=== PATIENT | female | born 1970 | race Caucasian/White ===

== ENCOUNTER → 2016-06-17 | Outpatient (CLI) | payer BC ==
[2016-06-17 08:23] LABS: Basophils # (A) 0.1 k/uL (0-0.2); Basophils % (A) 1 %; CH 32.4; CHCM 34.4; Eosinophils # (A) 0.1 k/uL (0-0.7); Eosinophils % (A) 2 %; HCT 40.9 % (34.0-46.0); HDW 2.53; HGB 13.5 gm/dL (11.4-16.0); Luc # (Auto) 0.12; Luc % (Auto) 2; Lymphocytes # (A) 1.8 k/uL (1.0-4.8); Lymphocytes % (A) 29 %; MCH 31.3 pg (25.0-35.0); MCHC 33.1 g/dL (31.0-37.0); MCV 94.5 fL (80.0-100.0); Mean Platelet Volume 6.7; Monocytes # (A) 0.2 k/uL (0-1.0); Monocytes % (A) 4 %; Neutrophils # (A) 3.8 k/uL (1.3-7.7); Neutrophils % (A) 63 %; RBC 4.33 m/uL (3.80-5.40); RDW 12.1 % (11.5-15.5); WBC (Perox) 6.14
[2016-06-17 09:09] LABS: ALT 36 U/L (9-52); AST 21 U/L (14-36); Alkaline Phosphatase 82 U/L (38-126); Anion Gap 9 mmol/L; Blood Urea Nitrogen 15 mg/dL (7-17); Calcium 9.5 mg/dL (8.4-10.2); Carbon Dioxide 29 mmol/L (22-30); Chloride 102 mmol/L (98-107); Cholesterol 152 mg/dL (<200); Glucose 93 mg/dL (74-99); HDL Cholesterol 58 mg/dL (40-60); Non-African American GFR(MDRD) >60 (>60 ml/min/1.73 sqM); Potassium 4.6 mmol/L (3.5-5.1); Sodium 140 mmol/L (137-145); Total Bilirubin 0.8 mg/dL (0.2-1.3); Total Protein 7.3 g/dL (6.3-8.2); Triglycerides 66 mg/dL (<150)
== END | disposition home or self-care (01) ==
LOC: LABWHC1 07:56
PROVIDERS: ATTEND Family Medicine
DX: Z13.29 Encounter for screening for other suspected endocrine disorder (principal); Z13.6 Encounter for screening for cardiovascular disorders
CPT/HCPCS: 36415; 80053; 80061; 84443; 85025

== ENCOUNTER → 2017-10-11 | Outpatient (CLI) | payer BC ==
--- NOTE | 2017-10-11 10:19 | US ---
EXAMINATION TYPE: US kidneys/renal and bladder DATE OF EXAM: 10/11/2017 COMPARISON: US CLINICAL HISTORY: N20.0Calculus of kidney, R31.9 Hematuria. EXAM MEASUREMENTS: Right Kidney: 11.2 x 4.4 x 3.4 cm Left Kidney: 10.3 x 6.6 x 5.7 cm Post Void Residual Volume: 6.9 mL Right Kidney: complex cyst mid cortex = 0.6 x 0.5 x 0.4cm; mid pole multiple small hyperechoic foci; lower pole shadowing cluster of stones = 0.4 x 0.5 x 0.4cm Left Kidney: mild hydronephrosis; mid pole parallel hyperechoic lines suggests calcification in vesse l perdomo Bladder: wnl Bilateral Jets seen: Yes Normal Post Void Residual: Yes Bilateral ureteral jets are seen. Bladder is well distended without intraluminal mass or wall thickening. Bilateral jets are seen. Afte r voiding small amount of residual urine is present. There is increased cortical echogenicity in right kidney. Technologist riojas nonspecific hyperechoic nonshadowing areas and tiny simple cysts. Left kidney there is anechoic area centrally favoring promi nent renal pelvis as there is no calyceal dilatation. Increased cortical echogenicity is present. IMPRESSION: No significant finding is seen to account for patient's symptoms. Possible nonobstructing right-sided renal calculi. Advise CT to better assess.
== END ==
LOC: RADUSMAIN 08:32
PROVIDERS: ATTEND Urology
DX: R31.9 Hematuria, unspecified (principal)
CPT/HCPCS: 76770

== ENCOUNTER → 2017-12-13 | Outpatient (CLI) | payer BC ==
--- NOTE | 2017-07-19 10:15 | US ---
EXAMINATION TYPE: US abdomen limited DATE OF EXAM: 07/19/2017 COMPARISON: None CLINICAL HISTORY: 46-year-old female R10.10 Upper abd pain unspecified. Pt states RUQ pain on/off x m any years Technique: Multiple sonographic images of the right upper quadrant are obtained. FINDINGS: Liver Length: 14.5 cm Gallbladder Wall: 0.2 cm CBD: 0.3 cm Right Kidney: 10.7 x 3.1 x 4.8 cm Pancreas: wnl Liver: Normal homogeneous echotexture without focal lesion. Gallbladder: wnl Evidence for sonographic Laureano's sign: No CBD: wnl Right Kidney: No hydronephrosis. There is a 5 mm echogenic focus at the mid pole that could represent a nonobstructive calculus. IMPRESSION: Possible 5 mm nonobstructive right mid pole renal calculus. Otherwise, unremarkable sonographic exami nation of the right upper quadrant.
--- NOTE | 2017-12-14 11:08 | MM ---
Reason for exam: screening (asymptomatic). Last mammogram was performed 1 year and 7 months ago. History: Patient has history of other cancer at age 44. Family history of breast cancer in paternal grandmother at age 58. Physical Findings: A clinical breast exam by your physician is recommended on an annual basis and results should be correlated with mammographic findings. MG 3D Screening Mammo W/Cad Bilateral CC and MLO view(s) were taken. Prior study comparison: May 11, 2016, bilateral MG 3d screening mammo w/cad. April 08, 2015, bilateral MG screening mammo w CAD. The breast tissue is heterogeneously dense. This may lower the sensitivity of mammography. Asymmetric breast tissue in the left upper breast. There is no discrete abnormality. ASSESSMENT: Negative, BI-RAD 1 RECOMMENDATION: Routine screening mammogram of both breasts in 1 year.
== END | disposition home or self-care (01) ==
LOC: RADUSWWP 07-19 09:02
PROVIDERS: ATTEND Obstetrics & Gynecology
DX: R10.10 Upper abdominal pain, unspecified (principal)
CPT/HCPCS: 76705; 77063; 77067

== ENCOUNTER → 2018-12-19 | Outpatient (CLI) | payer BC ==
[2018-12-19 10:20] LABS: Basophils % (A) 1 %; Eosinophils # (A) 0.1 k/uL (0-0.7); Eosinophils % (A) 2 %; HCT 41.2 % (34.0-46.0); HGB 13.3 gm/dL (11.4-16.0); Lymphocytes # (A) 2.1 k/uL (1.0-4.8); Lymphocytes % (A) 35 %; MCH 31.9 pg (25.0-35.0); MCHC 32.4 g/dL (31.0-37.0); MCV 98.5 fL (80.0-100.0); Mean Platelet Volume 7.2; Monocytes # (A) 0.3 k/uL (0-1.0); Monocytes % (A) 4 %; Neutrophils # (A) 3.3 k/uL (1.3-7.7); Neutrophils % (A) 56 %; Platelet Count 304 k/uL (150-450); RBC 4.18 m/uL (3.80-5.40); RDW 13.1 % (11.5-15.5); WBC 5.9 k/uL (3.8-10.6)
[2018-12-19 16:04] LABS: ALT 18 U/L (8-44); AST 20 U/L (13-35); African American GFR (CKD) 117.1 (60.0-200.0); Alkaline Phosphatase 102 U/L (41-126); BUN/Creat Ratio 21.43 Ratio (12.00-20.00); Calcium 9.2 mg/dL (8.7-10.3); Carbon Dioxide 28.7 mmol/L (21.6-31.8); Chloride 105 mmol/L (96-109); Cholesterol 152 mg/dL (0-200); Glucose 94 mg/dL (70-110); Potassium 4.6 mmol/L (3.5-5.5); Sodium 140 mmol/L (135-145); Total Bilirubin 0.4 mg/dL (0.2-1.2); Total Protein 6.2 g/dL (6.2-8.2); Triglycerides <50.0 mg/dL (0.0-149.0); VLDL Calculation 9.98 mg/dL (5.00-40.00)
== END | disposition home or self-care (01) ==
LOC: LABWHC1 08:44
PROVIDERS: ATTEND Family Medicine
DX: Z13.220 Encounter for screening for lipoid disorders (principal); Z13.29 Encounter for screening for other suspected endocrine disorder
CPT/HCPCS: 36415; 80053; 80061; 84443; 85025

== ENCOUNTER → 2019-01-23 | Outpatient (CLI) | payer BC ==
--- NOTE | 2019-01-28 09:19 | MM ---
Reason for exam: screening (asymptomatic). Last mammogram was performed 1 year and 1 month ago. History: Patient has history of other cancer at age 44. Family history of breast cancer in paternal grandmother at age 58. Physical Findings: A clinical breast exam by your physician is recommended on an annual basis and results should be correlated with mammographic findings. MG 3D Screening Mammo W/Cad Bilateral CC and MLO view(s) were taken. Prior study comparison: December 13, 2017, bilateral MG 3d screening mammo w/cad. May 11, 2016, bilateral MG 3d screening mammo w/cad. The breast tissue is extremely dense which could obscure a lesion on mammography. Focal asymmetry right upper quadrant, increased in size from 4 to 6mm. This finding is changed when compared with previous exams. ASSESSMENT: Incomplete: need additional imaging evaluation, BI-RAD 0 RECOMMENDATION: Special view mammogram of the right breast. If lesion persists on supplemental views, image directed ultrasound is recommended. [facility] will attempt to contact patient to return for supplemental views and ultrasound if indicated.
== END | disposition home or self-care (01) ==
LOC: RADMAMWWP 08:52
PROVIDERS: ATTEND Obstetrics & Gynecology
DX: Z12.31 Encounter for screening mammogram for malignant neoplasm of breast (principal)
CPT/HCPCS: 77063; 77067

== ENCOUNTER → 2019-02-05 | Outpatient (CLI) | payer BC | END | disposition home or self-care (01) | LOC: LABWHC1 07:08 | PROVIDERS: ATTEND Obstetrics & Gynecology | DX: N93.8 Other specified abnormal uterine and vaginal bleeding (principal) | CPT/HCPCS: 36415; 82670; 83001; 83002 ==

== ENCOUNTER → 2019-02-13 | Outpatient (CLI) | payer BC ==
--- NOTE | 2019-02-13 09:35 | MM ---
Reason for exam: additional evaluation requested from abnormal screening. Last mammogram was performed 1 month ago. History: Patient has history of other cancer at age 44. Family history of breast cancer in paternal grandmother at age 58. Physical Findings: Nurse did not find any significant physical abnormalities on exam. MG 3D Work Up W/Cad RT ML and spot compression MLO view(s) were taken of the right breast. Prior study comparison: January 23, 2019, bilateral MG 3d screening mammo w/cad. December 13, 2017, bilateral MG 3d screening mammo w/cad. There is no discrete abnormality including area of concern. These results were verbally communicated with the patient and result sheet given to the patient on 02/13/19. ASSESSMENT: Negative, BI-RAD 1 RECOMMENDATION: Return to routine screening mammogram schedule for both breasts.
== END | disposition home or self-care (01) ==
LOC: RADMAMWWP 08:56
PROVIDERS: ATTEND Obstetrics & Gynecology
DX: R92.8 Other abnormal and inconclusive findings on diagnostic imaging of breast (principal)
CPT/HCPCS: 77061; 77065

== ENCOUNTER → 2020-06-23 | Outpatient (CLI) | payer BC ==
--- NOTE | 2020-06-23 15:57 | BD ---
EXAMINATION TYPE: Axial Bone Density DATE OF EXAM: 06/23/2020 COMPARISON: NONE CLINICAL HISTORY: Height: 5 FT 4 IN Weight: 139 FRAX RISK QUESTIONS: Alcohol (3 or more units per day): NO Family History (Parent hip fracture): NO Glucocorticoids (More than 3mos): NO (Ex: prednisone, prednisolone, methylprednisolone, dexamethasone, and hydrocortisone). History of Fracture in Adulthood: NO Secondary Osteoporosis: 1. Type 1 Diabetes: NO 2. Hyperthyroidism: NO 3. Menopause before 45: NO 4. Malnutrition: NO 5. Chronic liver disease: NO Rheumatoid Arthritis: NO Current Tobacco Use: NO RISK FACTORS HISTORY OF: Family History of Osteoporosis: YES Active: YES Diet low in dairy products/other sources of calcium: NO Postmenopausal woman: PILY If Premenopausal, do you have irregular periods: YES Take estrogen and/or progesterone medications: NONE Lost more than 2 inches in height since high school: NO MEDICATIONS: Additional Medications: NONE Additional History: EXAM MEASUREMENTS: Bone mineral densitometry was performed using the [employer]. Bone mineral density as measured about the Lumbar spine is: ----- L1-L4(G/cm2): 1.296 T Score Values are as follows: ----- L2: 0.6 ----- L3: 1.3 ----- L4: 1.3 ----- L1-L4: 1.0 BASELINE Bone mineral density about the R hip (g/cm2): 1.045 Bone mineral density about the L hip (g/cm2): 1.054 T Score values are as follows: -----R Neck: 0.0 -----L Neck: 0.1 -----R Total: -0.2 -----L Total: -0.1 BASELINE IMPRESSION: Normal (Values between +1 and -1 indicate normal bone mass). Consider repeating this study in 5 year s or sooner if there is some new clinical indication. NOTE: T-SCORE=SD OF THE YOUNG ADULT MEAN.
== END | disposition home or self-care (01) ==
LOC: RADBDWWP 07:11
PROVIDERS: ATTEND Obstetrics & Gynecology
DX: N95.1 Menopausal and female climacteric states (principal)
CPT/HCPCS: 77080

== ENCOUNTER → 2020-07-09 | Outpatient (CLI) | payer BC ==
--- NOTE | 2020-07-13 12:26 | MM ---
Reason for exam: screening (asymptomatic). Last mammogram was performed 1 year and 5 months ago. History: Patient has history of other cancer at age 44. Family history of breast cancer in paternal grandmother at age 58. Took hormonal contraceptives for 12 years. Physical Findings: A clinical breast exam by your physician is recommended on an annual basis and results should be correlated with mammographic findings. MG 3D Screening Mammo W/Cad Bilateral CC and MLO view(s) were taken. Prior study comparison: January 23, 2019, bilateral MG 3d screening mammo w/cad. December 13, 2017, bilateral MG 3d screening mammo w/cad. May 11, 2016, bilateral MG 3d screening mammo w/cad. The breast tissue is heterogeneously dense. This may lower the sensitivity of mammography. No significant changes when compared with prior studies. ASSESSMENT: Benign, BI-RAD 2 RECOMMENDATION: Routine screening mammogram of both breasts in 1 year.
== END | disposition home or self-care (01) ==
LOC: RADMAMWWP 07:18
PROVIDERS: ATTEND Obstetrics & Gynecology Obstetrics
DX: Z12.31 Encounter for screening mammogram for malignant neoplasm of breast (principal)
CPT/HCPCS: 77063; 77067

== ENCOUNTER → 2021-02-28 | Outpatient (CLI) | payer BC ==
[2021-02-28 14:21] LABS: Estradiol 44.2 pg/mL; Follicle Stimulating Hormone 9.9 mIU/mL
== END | disposition home or self-care (01) ==
LOC: LABWHC1 07:17
PROVIDERS: ATTEND Obstetrics & Gynecology Obstetrics
DX: R53.83 Other fatigue (principal); L65.9 Nonscarring hair loss, unspecified; R37 Sexual dysfunction, unspecified
CPT/HCPCS: 36415; 82670; 83001; 84403

== ENCOUNTER → 2021-07-21 | Outpatient (CLI) | payer BC ==
[2021-07-21 14:53] LABS: Basophils # (A) 0.05 X 10*3/uL (0.00-0.10); Basophils % (A) 0.6 %; Eosinophils # (A) 0.14 X 10*3/uL (0.04-0.35); Eosinophils % (A) 1.8 %; HCT 43.1 % (37.2-46.3); HGB 13.9 g/dL (12.0-15.0); Immature Grans, Automated 0.4 %; Lymphocytes # (A) 1.88 X 10*3/uL (0.90-5.00); Lymphocytes % (A) 23.6 %; MCH 31.8 pg (27.0-32.0); MCHC 32.3 g/dL (32.0-37.0); MCV 98.6 fL (80.0-97.0); Mean Platelet Volume 9.7 fL (9.5-12.2); Monocytes # (A) 0.46 X 10*3/uL (0.20-1.00); Monocytes % (A) 5.8 %; NRBC Per 100 WBC 0 /100 WBCS (0.0-0.0); Neutrophils % (A) 67.8 %; Platelet Count 292 X 10*3/uL (140-440); RBC 4.37 X 10*6/uL (4.10-5.20); RDW 12.5 % (11.5-14.5); WBC 7.96 X 10*3/uL (4.50-10.00)
[2021-07-21 15:28] LABS: ALT 17 U/L (8-44); AST 23 U/L (13-35); African American GFR (CKD) 116.3 (60.0-200.0); Albumin 4.5 g/dL (3.8-4.9); Albumin/Globulin Ratio 1.73 (1.60-3.17); Alkaline Phosphatase 74 U/L (41-126); BUN/Creat Ratio 15.79 Ratio (12.00-20.00); Blood Urea Nitrogen 10.8 mg/dL (9.0-27.0); Calcium 9.3 mg/dL (8.7-10.3); Carbon Dioxide 24.7 mmol/L (20.0-27.5); Chloride 101 mmol/L (96-109); Globulin 2.6 g/dL (1.6-3.3); Glucose 95 mg/dL (70-110); LDL Cholesterol,Calculated 90.8 mg/dL (0.0-131.0); Non-African American GFR(CKD) 100.4 (60.0-200.0); Potassium 4.2 mmol/L (3.5-5.5); Sodium 138 mmol/L (135-145); Total Protein 7.2 g/dL (6.2-8.2); VLDL Calculation 14.04 mg/dL (5.00-40.00)
--- NOTE | 2021-07-25 09:38 | MM ---
Reason for exam: screening (asymptomatic). Last mammogram was performed 1 year ago. History: Patient is postmenopausal and has history of other cancer at age 44. Family history of breast cancer in paternal grandmother at age 58. Took hormonal contraceptives for 12 years. Taking other hormone for 8 months. Physical Findings: A clinical breast exam by your physician is recommended on an annual basis and results should be correlated with mammographic findings. MG 3D Screening Mammo W/Cad Bilateral CC and MLO view(s) were taken. Prior study comparison: July 09, 2020, bilateral MG 3d screening mammo w/cad. February 13, 2019, right breast MG 3d work up w/cad RT. The breast tissue is extremely dense which could obscure a lesion on mammography. No significant changes when compared with prior studies. ASSESSMENT: Benign, BI-RAD 2 RECOMMENDATION: Routine screening mammogram of both breasts in 1 year.
== END | disposition home or self-care (01) ==
LOC: RADMAMWWP 08:35
PROVIDERS: ATTEND Obstetrics & Gynecology Obstetrics
DX: Z12.31 Encounter for screening mammogram for malignant neoplasm of breast (principal); Z13.220 Encounter for screening for lipoid disorders; Z01.89 Encounter for other specified special examinations; R79.9 Abnormal finding of blood chemistry, unspecified; R53.83 Other fatigue; N95.9 Unspecified menopausal and perimenopausal disorder; R37 Sexual dysfunction, unspecified; G47.00 Insomnia, unspecified
CPT/HCPCS: 77063; 77067; 80053; 80061; 84403; 84443; 85025

== ENCOUNTER → 2022-08-25 | Outpatient (CLI) | payer BC ==
--- NOTE | 2022-08-28 19:15 | MM ---
Reason for Exam: Screening (asymptomatic). Last mammogram was performed 1 year(s) and 1 month(s) ago. Patient History: Menarche at age 11. First Full-Term at age 25. Postmenopausal. Patient has history of breast feeding. Other cancer, age 44. Patient used Hormonal Contraceptives for 12 years. Paternal grandmother had breast cancer, age 58. Risk Values: Nicki 5 year model risk: 1.3%. NCI Lifetime model risk: 9.3%. Prior Study Comparison: 05/11/2016 Bilateral Screening Mammogram, [facility]. 12/13/2017 Bilateral Screening Mammogram, [facility]. 01/23/2019 Bilateral Screening Mammogram, [facility]. 02/13/2019 Right Diagnostic Mammogram, [facility]. 07/09/2020 Bilateral Screening Mammogram, [facility]. 07/21/2021 Bilateral Screening Mammogram, [facility]. Tissue Density: The breast tissue is heterogeneously dense. This may lower the sensitivity of mammography. Findings: Analyzed By CAD. Areas of asymmetric density remain unchanged. There is no suspicious group of microcalcifications or new suspicious mass in either breast. Overall Assessment: Benign, BI-RAD 2 Management: Screening Mammogram of both breasts in 1 year. 1. Patient should continue monthly self breast exams. 2. A clinical breast exam by your physician is recommended on an annual basis. 3. This exam should not preclude additional follow-up of suspicious palpable abnormalities. Electronically signed and approved by: Ted Duvall M.D. Radiologist
== END | disposition home or self-care (01) ==
LOC: RADMAMWWP 12:40
PROVIDERS: ATTEND Family Medicine
DX: Z12.31 Encounter for screening mammogram for malignant neoplasm of breast (principal); Z78.0 Asymptomatic menopausal state; Z80.3 Family history of malignant neoplasm of breast
CPT/HCPCS: 77063; 77067

== ENCOUNTER → 2023-07-05 | Outpatient (CLI) | payer BC ==
--- NOTE | 2023-07-05 11:38 | MR ---
EXAMINATION TYPE: MR cervical spine wo con DATE OF EXAM: 07/05/2023 COMPARISON: None HISTORY: Prior imaging done at [facility] images imported to pacs, neck pain and HAs with pain into left shou lder, chronic but increasing in intensity over the last 4 months TECHNIQUE: Multiplanar, multisequence images of the cervical spine were acquired without contrast. C2-C3: Minimal anterolisthesis with mild disc desiccation but no foraminal encroachment, canal stenos is, or disc herniation. C3-C4: Mild disc desiccation and uncovertebral joint hypertrophy. Mild bilateral foraminal encroachme nt. No canal stenosis or focal herniation. C4-C5: Moderate degenerative disc disease with uncovertebral joint hypertrophy. Mild right and modera te left foraminal encroachment greater on the left with facet arthropathy. No disc herniation. Cloud Developer ior mild disc osteophyte complex with spondylosis. No canal stenosis. C5-C6: Moderate degenerative disc disease with uncovertebral joint hypertrophy. Moderate left foramin al encroachment greater on the left with facet arthropathy. No disc herniation. Posterior mild disc o steophyte complex with spondylosis. No canal stenosis C6-C7: Moderate degenerative disc disease with uncovertebral joint hypertrophy. Moderate bilateral fo raminal encroachment greater on the left with facet arthropathy. No disc herniation. Posterior mild d isc osteophyte complex with spondylosis. No canal stenosis C7-T1: Mild degenerative disc disease. No disc bulge/herniation or protrusion. No Canal stenosis. Foramina are patent bilaterally. Cervical segments are intact. There is normal alignment. Cervical spinal cord is of normal signal. Craniovertebral junction relationships are within normal limits. IMPRESSION: 1. Moderate to severe multilevel degenerative disc disease from levels C3-C6. The findings result in multilevel foraminal encroachment but no canal stenosis.
== END | disposition home or self-care (01) ==
LOC: RADMRIMAIN 10:22
PROVIDERS: ATTEND Psychiatry & Neurology Neurology
DX: M50.11 Cervical disc disorder with radiculopathy, high cervical region (principal); M50.121 Cervical disc disorder at C4-C5 level with radiculopathy; M50.122 Cervical disc disorder at C5-C6 level with radiculopathy; M50.123 Cervical disc disorder at C6-C7 level with radiculopathy
CPT/HCPCS: 72141

== ENCOUNTER → 2023-09-06 | Outpatient (CLI) | payer BC ==
--- NOTE | 2023-09-07 14:16 | MM ---
Reason for Exam: Screening (asymptomatic). Last mammogram was performed 1 year(s) and 1 month(s) ago. Patient History: Menarche at age 11. First Full-Term at age 25. Postmenopausal. Patient has history of breast feeding. Other cancer, age 44. Patient used Hormonal Contraceptives for 12 years. Paternal grandmother had breast cancer, age 58. Risk Values: Nicki 5 year model risk: 1.3%. NCI Lifetime model risk: 9.1%. Prior Study Comparison: 07/09/2020 Bilateral Screening Mammogram, [facility]. 07/21/2021 Bilateral Screening Mammogram, [facility]. 08/25/2022 Bilateral MG 3D screening mammo w/cad, [facility]. Tissue Density: The breasts are heterogeneously dense, which may obscure small masses. Findings: Analyzed By CAD. There is no suspicious group of microcalcifications or new suspicious mass in either breast. Overall Assessment: Negative, BI-RAD 1 Management: Screening Mammogram of both breasts in 1 year. . Patient should continue monthly self-breast exams. A clinical breast exam by your physician is recommended on an annual basis. This exam should not preclude additional follow-up of suspicious palpable abnormalities. Note on Nicki scores and lifetime risk: 1. A Nicki score greater than 3% is considered moderate risk. If this is the case, consider specialist referral to assess eligibility for a risk reducing agent. 2. If overall lifetime risk for the development of breast cancer is 20% or higher, the patient may qualify for future screening with alternating mammogram and breast MRI. Electronically signed and approved by: Simon Phillips M.D. Radiologis
== END | disposition home or self-care (01) ==
LOC: RADMAMWWP 09:20
PROVIDERS: ATTEND Family Medicine
DX: Z12.31 Encounter for screening mammogram for malignant neoplasm of breast (principal); Z78.0 Asymptomatic menopausal state; Z80.3 Family history of malignant neoplasm of breast
CPT/HCPCS: 77063; 77067

== ENCOUNTER → 2024-07-01 | Outpatient (CLI) | payer BC ==
[2024-07-01 17:00] VITALS: BP 109/65; PULSE 66; RESP 16; TEMP 97.7
--- NOTE | 2024-07-01 17:41 | P.SLEEP ---
History of Present Illness H&P Date: 07/01/24 Is a 53-year-old male patient who was referred to me for concerns of sleep apnea. 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 She is recently, she has noted to have some increased snoring and snoring gets worse whenever she is more tired or she develops increased allergies or respiratory tract infections. Her snoring is also worse on her back. On the days that she snores, she feels more exhausted the following day. She is able to function well at work. She does not fall asleep while performing day-to-day activities or on the job. She goes to bed between 10 and 10:30 PM and she wakes up between 6 and 6:30 AM in the morning. She is averaging around 7 to 8 hours of sleep. Denies waking up choking or gasping for air. She clenches her jaw. No grinding. No sleepwalking. No restlessness in lower extremities. No sleep talking. No anxiety. No panic attacks. No heartburn. No sleep paralysis. No hallucinations. No cataplexy. She is able to sleep on her side and on her back and her snoring is worse on her back. No recent weight gain. No excessive utilization of the alcoholic beverages or caffeinated beverages. No muscle relaxants. No narcotic intake. She is postmenopausal and she is taking hormonal pellets. Review of Systems Constitutional: Reports daytime sleepiness, Reports fatigue Eyes: denies as per HPI, denies blurred vision, denies bulging eye, denies decreased vision, denies diplopia, denies discharge, denies dry eye, denies irritation, denies itching, denies pain, denies photophobia, denies loss of peripheral vision, denies loss of vision, denies tunnel vision/blind spots Ears: deny: decreased hearing, ear discharge, earache, tinnitus Ears, nose, mouth and throat: Reports as per HPI Breasts: absent: as per HPI, change in shape, gynecomastia, masses, nipple discharge, pain, skin changes, swelling Cardiovascular: Reports as per HPI Respiratory: Reports snoring Gastrointestinal: Reports as per HPI Genitourinary: Reports as per HPI Menstruation: Reports as per HPI Musculoskeletal: Reports as per HPI Musculoskeletal: absent: ankle pain, ankle stiffness, ankle swelling, as per HPI, elbow pain, elbow stiffness, elbow swelling, foot pain, foot stiffness, foot swelling, hand pain, hand stiffness, hand swelling, hip pain, hip stiffness, hip swelling, knee pain, knee stiffness, knee swelling, shoulder pain, shoulder stiffness, shoulder swelling, wrist pain, wrist stiffness, wrist swelling Integumentary: Reports as per HPI Neurological: Reports as per HPI Psychiatric: Reports as per HPI Endocrine: Reports fatigue Hematologic/Lymphatic: Reports as per HPI Allergic/Immunologic: Reports as per HPI Past Medical History Additional Past Medical History / Comment(s): Allergies, snoring History of Any Multi-Drug Resistant Organisms: None Reported Additional Past Surgical History / Comment(s): Sinus surgeries, uterine ablation Past Psychological History: No Psychological Hx Reported Smoking Status: Never smoker Past Alcohol Use History: Occasional Past Drug Use History: None Reported - Past Family History Father Family Medical History: CVA/TIA, Sleep Apnea/CPAP/BIPAP Additional Family Medical History / Comment(s): A-FIB, ARTHRITIS, SNORING, Mother Family Medical History: Cancer, Fibromyalgia, GERD/Reflux Additional Family Medical History / Comment(s): Arthritis, Multiple myeloma, ulcers Medications and Allergies Home Medications Medication Instructions Recorded Confirmed Type Cyclobenzaprine [Flexeril] 5 mg PO DIRECTED 07/01/24 07/01/24 History Ibuprofen [Motrin] 800 mg PO DIRECTED 07/01/24 07/01/24 History Progesterone, Micronized 100 mg PO DAILY 07/01/24 07/01/24 History [Prometrium] Physical Exam Vitals: Vital Signs Temp Pulse Resp BP Pulse Ox 07/01/24 16:57 97.7 F 66 16 109/65 100 Intake and Output 07/01/24 07/01/24 07/01/24 06:59 14:59 22:59 Other: Weight 62.596 kg The patient appeared well nourished and normally developed. Vital signs as documented. Head exam is unremarkable. No scleral icterus or corneal arcus noted. Neck is without jugular venous distension, thyromegaly, or carotid bruits. Carotid upstrokes are brisk bilaterally. Lungs are clear to auscultation and percussion. Cardiac exam reveals the PMI to be normally sized and situated. Rhythm is regular. First and second heart sounds normal. No murmurs, rubs or gallops. Abdominal exam reveals normal bowel sounds, no masses, no organomegaly and no aortic enlargement. Extremities are nonedematous and both femoral and pedal pulses are normal. Examination of the skin revealed no evidence of significant rashes, suspicious appearing nevi or other concerning lesions. Neurologically, the patient is awake and alert and the patient does not have any focal neurological deficit. Cranial nerves are essentially intact. Assessment and Plan Plan: Snoring, likely primary snoring. Possibility of obstructive sleep apnea is considered to be less likely. No significant pathologic hypersomnia or sleepiness. [place] score is at 9. No recent weight gain. The patient is a Mallampati class I. No other major comorbidities such as cardiovascular disease Plan Will asked the patient to sleep on her side Keep the head of the bed elevated at around 20 degrees Avoid any form of alcoholic beverages at least 3 hours prior to going to bed. Avoid any sleep deprivation Continue with 7 to 8 hours of sleep on a daily basis Continue abnormality good sleep hygiene measures Will proceed with a home sleep study to evaluate the patient for sleep breathing disorder. Will make further recommendation accordingly should there be any significant sleep apnea. Will continue to follow. Sleep Note - Sleep Data ESS Total: 9 - Sleep Note Sleep Note: Temperature: 97.7 F Pulse Rate: 66 Respiratory Rate: 16 Blood Pressure: 109/65 SpO2: 100 Height: 5 ft 4.2 in Weight: 62.596 kg BMI: Neck Circumference: 13.5
== END ==
LOC: 3 N SLEEP 15:44
PROVIDERS: ATTEND Internal Medicine Critical Care Medicine
DX: R06.83 Snoring (principal)
CPT/HCPCS: 99211

== ENCOUNTER → 2024-09-16 | Outpatient (CLI) | payer BC ==
--- NOTE | 2024-09-24 08:38 | P.PCN ---
Date of Procedure: 09/16/24 Operative Findings: Home sleep study testing Date of service is 09/16/2024 History 53-year-old male patient who was referred to me for concerns of sleep apnea. 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 She is recently, she has noted to have some increased snoring and snoring gets worse whenever she is more tired or she develops increased allergies or respiratory tract infections. Her snoring is also worse on her back. On the days that she snores, she feels more exhausted the following day. She is able to function well at work. She does not fall asleep while performing day-to-day activities or on the job. She goes to bed between 10 and 10:30 PM and she wakes up between 6 and 6:30 AM in the morning. She is averaging around 7 to 8 hours of sleep. Denies waking up choking or gasping for air. She clenches her jaw. No grinding. No sleepwalking. No restlessness in lower extremities. No sleep talking. No anxiety. No panic attacks. No heartburn. No sleep paralysis. No hallucinations. No cataplexy. She is able to sleep on her side and on her back and her snoring is worse on her back. No recent weight gain. No excessive utilization of the alcoholic beverages or caffeinated beverages. No muscle relaxants. No narcotic intake. She is postmenopausal and she is taking hormonal pellets. Technical description This is a type III home sleep study. The [employer] stars system was used to complete his home sleep study. The total recording duration was 8 hours and 23 minutes. The study started at 9:52 PM and ended at 6:15 AM. There was a total of 8 hours and 11 minutes of flow monitoring and 8 hours and 12 minutes of oxygen saturation monitoring. Results Respiratory analysis showed a total of 1 obstructive apnea and 12 obstructive hypopneas. The resulting apnea-hypopnea index was 1.6 Oxygenation analysis No significant desaturation were noted and the patient was able to maintain a pulse ox above 90% throughout the sleep study. Average pulse ox during sleep was 93% Cardiac summary The average heart rate was 60 with a minimum heart rate of 50 and a maximum heart rate of 97 Assessment Snoring, likely primary snoring. No evidence of any significant sleep breathing disorder. Based on the current home sleep study, the patient has an AHI of 1.6. No significant pathologic hypersomnia or sleepiness. [place] score is at 9. No recent weight gain. The patient is a Mallampati class I. No other major comorbidities such as cardiovascular disease Plan Reassured the patient. No need for CPAP therapy. This study is consistent with primary snoring. Will asked the patient to sleep on her side Keep the head of the bed elevated at around 20 degrees Avoid any form of alcoholic beverages at least 3 hours prior to going to bed. Avoid any sleep deprivation Continue with 7 to 8 hours of sleep on a daily basis Continue abnormality good sleep hygiene measures Refer back to the primary care physician. Contact me should there be any change in sleep quality in the future.
== END ==
LOC: 3 N SLEEP 16:59
PROVIDERS: ATTEND Internal Medicine Critical Care Medicine
DX: G47.33 Obstructive sleep apnea (adult) (pediatric) (principal)

== ENCOUNTER → 2024-10-16 | Outpatient (CLI) | payer BC ==
--- NOTE | 2024-10-16 14:32 | MM ---
Reason for Exam: Screening (asymptomatic). Last mammogram was performed 1 year(s) and 1 month(s) ago. Patient History: Menarche at age 11. First Full-Term at age 25. Postmenopausal. Patient has history of breast feeding. Other cancer, age 44. Patient used Hormonal Contraceptives for 12 years. Paternal grandmother had breast cancer, age 58. Risk Values: Nicki 5 year model risk: 1.4%. NCI Lifetime model risk: 8.9%. Prior Study Comparison: 07/21/2021 Bilateral Screening Mammogram, [facility]. 08/25/2022 Bilateral MG 3D screening mammo w/cad, [facility]. 09/06/2023 Bilateral MG 3D screening mammo w/cad, [facility]. Tissue Density: The breasts are heterogeneously dense, which may obscure small masses. Findings: Analyzed By CAD. Right breast: There is no suspicious group of microcalcifications or new suspicious mass. Left breast: There is no suspicious group of microcalcifications or new suspicious mass. Overall Assessment: Negative, BI-RAD 1 Management: Screening Mammogram of both breasts in [address] [facility] will attempt to contact patient to return for supplemental views and ultrasound if indicated. Patient should continue monthly self-breast exams. A clinical breast exam by your physician is recommended on an annual basis. This exam should not preclude additional follow-up of suspicious palpable abnormalities. Note on Nicki scores and lifetime risk: 1. A Nicki score greater than 3% is considered moderate risk. If this is the case, consider specialist referral to assess eligibility for a risk reducing agent. 2. If overall lifetime risk for the development of breast cancer is 20% or higher, the patient may qualify for future screening with alternating mammogram and breast MRI. [facility], , 10/16/2024 2:15 PM. Electronically signed and approved by: Praful Oates DO
== END | disposition home or self-care (01) ==
LOC: RADMAMWWP 12:54
PROVIDERS: ATTEND Obstetrics & Gynecology Obstetrics
DX: Z12.31 Encounter for screening mammogram for malignant neoplasm of breast (principal); R92.333 Mammographic heterogeneous density, bilateral breasts; Z78.0 Asymptomatic menopausal state; Z92.0 Personal history of contraception; Z80.3 Family history of malignant neoplasm of breast
CPT/HCPCS: 77063; 77067